=== PATIENT | female | born 1995 | race Caucasian/White ===

== ENCOUNTER → 2018-08-01 | Outpatient (CLI) | payer SELFPAY ==
--- NOTE | 2018-08-01 14:22 | XR ---
EXAMINATION TYPE: XR lumbosacral spine min 4V DATE OF EXAM: 08/01/2018 CLINICAL HISTORY: pain COMPARISON: NONE TECHNIQUE: Frontal, lateral, and oblique images of the lumbar spine are obtained. FINDINGS: There are 5 lumbar type vertebral bodies identified. The lumbar spine shows satisfactory alignment without evidence of acute fracture or dislocation. Vertebral body heights are within normal limits. Disc spaces are well preserved. The overlying soft tissue appears unremarkable. IMPRESSION: No acute fracture or dislocation is seen in the lumbar spine.ICD 10 NO FRACTURE, INITIAL EVALUATION
--- NOTE | 2018-08-01 14:23 | XR ---
EXAMINATION TYPE: XR cervical spine comp DATE OF EXAM: 08/01/2018 CLINICAL HISTORY: pain COMPARISON: NONE TECHNIQUE: Frontal, lateral, oblique, swimmers, and open mouth view of the cervical spine are obtaine d. FINDINGS: Mild reversal cervical lordosis may reflect muscle spasticity. The cervical spine is visua lized in its entirety from C1 thru the top of T1 level. It is satisfactory in alignment without evide nce of acute fracture or dislocation. The pre-vertebral soft tissue appears within normal limits. Di sc spaces are well preserved. The C1-C2 articulation is unremarkable on the open mouth view. The obl ique images are within normal limits. IMPRESSION: No acute fracture or dislocation is seen in the cervical spine.Mild reversal cervical lo rdosis may reflect muscle spasticity. ICD 10 NO FRACTURE, INITIAL EVALUATION
--- NOTE | 2018-08-01 15:04 | XR ---
EXAMINATION TYPE: XR knee complete RT DATE OF EXAM: 08/01/2018 CLINICAL HISTORY: pain TECHNIQUE: Three views of the right knee are obtained. COMPARISON: None. FINDINGS: There is no acute fracture/dislocation. The tri-compartment joint spaces appear within no rmal limits. The overlying soft tissue appears unremarkable. IMPRESSION: There is no acute fracture or dislocation.ICD 10 NO FRACTURE, INITIAL EVALUATION
--- NOTE | 2018-08-01 15:27 | XR ---
EXAMINATION TYPE: XR thoracic spine 2V DATE OF EXAM: 08/01/2018 CLINICAL HISTORY: pain TECHNIQUE: Frontal, lateral, and swimmer's view of thoracic spine are obtained. COMPARISON: None. FINDINGS: Thoracic spine show satisfactory alignment without evidence of acute fracture or dislocatio n. Vertebral body heights are preserved. Disc spaces are well preserved. Visualized ribs are unrem arkable. IMPRESSION: No acute fracture or dislocation is seen in the thoracic spine. ICD 10 NO FRACTURE, INIT IAL EVALUATION
== END | disposition home or self-care (01) ==
LOC: RADXRMAIN 13:40
PROVIDERS: ATTEND Internal Medicine
DX: M25.561 Pain in right knee (principal)
CPT/HCPCS: 72050; 72070; 72110

== ENCOUNTER 2021-03-20 06:43 | Emergency (ER) | payer OTHER ==
[2021-03-20 07:01] VITALS: BP 116/87; PULSE 83; RESP 18; TEMP 98.7
--- NOTE | 2021-03-20 07:28 | ED ---
Lower Extremity Injury HPI - General Chief Complaint: Extremity Injury, Lower Stated Complaint: L ankle injury Time Seen by Provider: 03/20/21 07:02 Source: patient Mode of arrival: wheelchair Limitations: no limitations - History of Present Illness Initial Comments: 25-year-old female presents to emergency department with a chief complaint of left ankle pain. Patient reports incident occurred several days ago when she felt a "pop" on the left ankle with an inversion injury. Patient reports there was some ecchymosis which has since resolved. Also reports swelling on the left lateral malleolus. She denies any paresthesias or weakness. Reports full range of motion with inversion and eversion. Denies taking medication to alleviate the symptoms. - Related Data Allergies Allergy/AdvReac Type Severity Reaction Status Date / Time No Known Allergies Allergy Verified 03/20/21 07:01 Review of Systems ROS Statement: Those systems with pertinent positive or pertinent negative responses have been documented in the HPI. ROS Other: All systems not noted in ROS Statement are negative. Past Medical History Past Medical History: No Reported History History of Any Multi-Drug Resistant Organisms: None Reported Past Surgical History: No Surgical Hx Reported Past Psychological History: Anxiety, Depression Smoking Status: Never smoker Past Alcohol Use History: Occasional Past Drug Use History: None Reported General Exam Limitations: no limitations General appearance: alert, in no apparent distress, obese Head exam: Present: atraumatic, normocephalic, normal inspection Eye exam: Present: normal appearance, PERRL, EOMI Pupils: Present: normal accommodation ENT exam: Present: normal exam, normal oropharynx, mucous membranes moist Neck exam: Present: normal inspection, full ROM. Absent: tenderness Respiratory exam: Present: normal lung sounds bilaterally. Absent: respiratory distress Cardiovascular Exam: Present: regular rate, normal rhythm, normal heart sounds Extremities exam: Present: tenderness (Left lateral malleolus tenderness. No midfoot or fifth metatarsal tenderness.), normal capillary refill, joint swelling, other (Palpable DP and PT bilaterally. Sensation intact in the left lower extremity.). Absent: normal inspection (Swelling on the left lateral malleolus), full ROM (Limited range of motion with inversion), pedal edema, calf tenderness Back exam: Present: normal inspection, full ROM. Absent: tenderness Neurological exam: Present: alert, oriented X3 Psychiatric exam: Present: normal affect, normal mood Skin exam: Present: warm, dry, intact, normal color Course Vital Signs 03/20/21 06:59 Temperature 98.7 F Pulse Rate 83 Respiratory 18 Rate Blood Pressure 116/87 O2 Sat by Pulse 100 Oximetry Medical Decision Making - Medical Decision Making 25-year-old female presents to emergency department with a chief complaint of left ankle pain. On physical examination, patient is neurovascularly intact. X-ray shows no acute fractures or dislocations . Patient likely suffered an ankle sprain. Advised follow-up with sales operations specialist. Vaibhav wrap applied. RICE. Return parameters discussed the patient is ascending agreeable. Case discussed with Dr. Hunter. Disposition Clinical Impression: Left ankle sprain Disposition: HOME SELF-CARE Condition: Stable Instructions (If sedation given, give patient instructions): Ankle Sprain (ED) Additional Instructions: Please return to the Emergency Department if symptoms worsen or any other concerns. Follow with sales operations specialist. Is patient prescribed a controlled substance at d/c from ED?: No Referrals: Nonstaff,Physician [Primary Care Provider] - 1-2 days Time of Disposition: 08:02
--- NOTE | 2021-03-20 07:59 | XR ---
EXAMINATION TYPE: XR ankle complete LT DATE OF EXAM: 03/20/2021 COMPARISON: NONE HISTORY: 25-year-old female with ankle injury and swelling after fall TECHNIQUE: AP, oblique and lateral views of the left ankle were obtained FINDINGS: No evidence of acute fracture or dislocation of the left ankle. The ankle mortise is intact . There is a large amount of overlying soft tissue swelling, more prominent laterally. Small joint ef fusion. IMPRESSION: 1. No evidence of acute fracture or dislocation of the left ankle. Ankle mortise is intact. Severe ov erlying soft tissue swelling. Small joint effusion.
== END 2021-03-20 08:15 | disposition home or self-care (01) ==
LOC: EC 06:43
DX: S93.402A Sprain of unspecified ligament of left ankle, initial encounter (principal); W19.XXXA Unspecified fall, initial encounter; X50.9XXA Other and unspecified overexertion or strenuous movements or postures, initial encounter; Y92.009 Unspecified place in unspecified non-institutional (private) residence as the place of occurrence of the external cause
CPT/HCPCS: 99283

== ENCOUNTER → 2022-06-15 | Outpatient (CLI) | payer OTHER ==
[2022-06-15 17:58] LABS: HCT 39.7 % (37.2-46.3); HGB 12.5 g/dL (12.0-15.0); MCH 28.4 pg (27.0-32.0); MCHC 31.5 g/dL (32.0-37.0); MCV 90.2 fL (80.0-97.0); NRBC Per 100 WBC 0 /100 WBCS (0.0-0.0); Platelet Count 506 X 10*3/uL (140-440); RDW 13.8 % (11.5-14.5); WBC 8.65 X 10*3/uL (4.50-10.00)
[2022-06-15 18:04] LABS: African American GFR (CKD) 102.3 (60.0-200.0); Albumin 4.8 g/dL (3.8-4.9); Albumin/Globulin Ratio 1.45 (1.60-3.17); Anion Gap 8.5 mmol/L (10.00-18.00); BUN/Creat Ratio 10.89 Ratio (12.00-20.00); Blood Urea Nitrogen 9.8 mg/dL (9.0-27.0); Calcium 9.6 mg/dL (8.7-10.3); Carbon Dioxide 25.5 mmol/L (20.0-27.5); Globulin 3.3 g/dL (1.6-3.3); Non-African American GFR(CKD) 88.2 (60.0-200.0); Potassium 3.9 mmol/L (3.5-5.5); Total Bilirubin 0.3 mg/dL (0.30-1.20); Total Protein 8.1 g/dL (6.2-8.2)
[2022-06-15 20:34] LABS: Gliadin AB IgA, Deaminated NEGATIVE (NEGATIVE); Gliadin AB IgA, Unit 6.7 U/mL; Gliadin AB IgG, Deaminated NEGATIVE (NEGATIVE); Gliadin AB IgG, Unit 0.5 U/mL
[2022-06-15 20:36] LABS: Clam IgE <0.10 kU/L; Codfish IgE <0.10 kU/L; Egg White IgE <0.10 kU/L; Peanut IgE <0.10 kU/L; Scallop IgE <0.10 kU/L; Shrimp IgE <0.10 kU/L; Soybean IgE <0.10 kU/L; Walnut IgE (Food) <0.10 kU/L
[2022-06-16 10:31] LABS: Cryptosporidium Antigen Negative (Negative)
== END | disposition home or self-care (01) ==
LOC: LABWHC1 12:34
PROVIDERS: ATTEND Family Medicine
DX: R19.7 Diarrhea, unspecified (principal); R15.2 Fecal urgency
CPT/HCPCS: 36415; 80053; 82785; 83516; 85027; 86003; 87045; 87046; 87324; 87328; 87329